=== PATIENT | male | born 2000 | race Hispanic/Latino ===

== ENCOUNTER 2024-08-30 21:51 | Emergency (ER) | payer SELFPAY ==
[~2024-08-30] VITALS: Ht 172.7 cm; Wt 121.1 kg
--- NOTE | 2024-08-30 22:06 | ERN ---
ED Note History of Present Illness Stated Complaint: C/O ABD PAIN WITH N X V ONSET THIS EVENING Chief Complaint: Abdominal Pain Time Seen by MD: 22:00 Dictation: PATIENT IS A 24-YEAR-OLD MALE COMING IN TODAY WITH COMPLAINTS OF EPIGASTRIC PAIN WITH NAUSEA VOMITING ONSET 2 HOURS PRIOR TO ARRIVAL. NO FEVER NO CHILLS NO CHEST PAIN NO BACK PAIN NO SOB. NO PRIMARY CARE DOCTOR AND HE HAS TAKEN NOTHING TODAY PRIOR TO ARRIVAL Allergies: Coded Allergies: No Known Allergies (Unverified Allergy, Unknown, 08/30/24) Past Medical History Past Medical History: No Pertinent History Surgical History: None PSYCH History: no pertinent psych hx RN Note Reviewed/Agreed w/PFSH: Yes Review of System Dictation CONSTITUTIONAL: NEGATIVE EXCEPT FOR HPI HEAD/FACE: NEGATIVE EXCEPT FOR HPI EENT: NEGATIVE EXCEPT FOR HPI RESPIRATORY: NEGATIVE EXCEPT FOR HPI GASTROINTESTINAL/ABDOMINAL: NEGATIVE EXCEPT FOR HPI EPIGASTRIC PAIN WITH NAUSEA AND VOMITING GENITOURINARY: NEGATIVE EXCEPT FOR HPI MUSCULOSKELETAL: NEGATIVE EXCEPT FOR HPI INTEGUMENTARY: NEGATIVE EXCEPT FOR HPI NEUROLOGICAL/PSYCH: NEGATIVE EXCEPT FOR HPI HEMATOLOGIC/LYMPHATIC: NEGATIVE EXCEPT FOR HPI ALL SYSTEMS NEGATIVE, EXCEPT NOTED ABOVE. 13 POINT REVIEW OF SYSTEMS ASSESSED AND ALL NEGATIVE EXCEPT FOR ABOVE. Initial Vital Sign VS Vital Signs Date Time Temp Pulse Resp B/P (MAP) Pulse Ox O2 Delivery O2 Flow Rate FiO2 08/30/24 21:55 97.3 70 18 134/92 100 Room Air 08/31/24 00:20 0 21 Physical Exam Dictation VITAL SIGNS REVIEWED GENERAL APPEARANCE: ALERT, ORIENTED X 3, MILD ACUTE DISTRESS, WELL DEVELOPED, NOURISHED. OBESE HEAD AND FACE: NON-TRAUMATIC. EYES: PERRL, PINK CONJUNCTIVAS, EYELID NO TRAUMA, ANTERIOR CHAMBER WITH ARCUS SENILIS. EARS: PINNAS INTACT AND NO SIGNS OF TRAUMA OR ERYTHEMA EAR CANALS CLEAR AND NO DISCHARGE TM NO ERYTHEMA NOSE: NO DISCHARGE, NO BLEEDING. OROPHARYNX: MOUTH NORMAL, TONGUE PINK, PHARYNX CLEAR,NO ERYTHEMA, TONSILS NO EXUDATES, NO ABSCESSES NOTED, MUCOUS MEMBRANE MOIST NECK: SUPPLE, NON-TENDER, NO THYROMEGALY, NO MASSES, NO JVD, NO BRUITS BREAST:DEFERRED CHEST:NO TENDERNESS, NO CREPITUS, NO PARADOXICAL MOVEMENT, NO RETRACTIONS LUNGS:CLEAR, WELL-VENTILATED, SYMMETRIC, NO RALES, NO WHEEZING, NO RHONCHI, NO STRIDOR, GOOD BREATH SOUNDS BILATERALLY HEART: REGULAR RATE, REGULAR RHYTHM, NO MURMUR, NO GALLOPS VASCULAR: NO PERIPHERAL EDEMA, ABDOMEN: SOFT, POSITIVE BOWEL SOUNDS, NONDISTENDED, NO GUARDING, MODERATE EPIGASTRIC TENDERNESS WITH PALPATION, NO REBOUND, NO MASSES NO HEPATOMEGALY, NO SPLENOMEGALY, NO SHEPHERD'S SIGN, NO HERNIAS. RECTAL: DEFERRED GENITAL: DEFERRED NEUROLOGICAL: NORMAL SPEECH, MOTOR FUNCTION INTACT, SENSORY FUNCTION INTACT MUSCULOSKELETAL: NECK NONTENDER, FULL RANGE OF MOTION, BACK NONTENDER, FULL RANGE OF MOTION, EXTREMITIES: NONTENDER, FULL RANGE OF MOTION SKIN: COLOR PINK, DRY, NO TURGOR, NO RASH, NO LACERATIONS, NO ABRASIONS, NO CONTUSIONS. LYMPHATIC: DEFERRED, NEED Results (Laboratory/Radiology) Laboratory/Radiology Laboratory Tests Test 08/30/24 22:31 08/31/24 01:25 White Blood Count 15.2 K/uL (4.8-10.8) H Red Blood Count 4.76 MIL/uL (4.50-6.20) Hemoglobin 15.3 g/dL (14.0-18.0) Hematocrit 44.4 % (42-54) Mean Corpuscular Volume 93.3 fL (79-99) Mean Corpuscular Hemoglobin 32.1 pg (27.0-33.0) Mean Corpuscular Hemoglobin Concent 34.5 g/dL (32.0-36.0) Red Cell Distribution Width 12.1 % (11.0-15.5) Platelet Count 278 K/uL (130-400) Mean Platelet Volume 10.4 fL (7.5-10.5) Immature Granulocyte % (Auto) 0.4 % (0-1) Neutrophils (%) (Auto) 68.9 % (40.0-77.0) Lymphocytes (%) (Auto) 23.9 % (21.0-51.0) Monocytes (%) (Auto) 5.5 % (3.0-13.0) Eosinophils (%) (Auto) 0.8 % (0.0-8.0) Basophils (%) (Auto) 0.5 % (0.0-5.0) Neutrophils # (Auto) 10.5 K/uL (1.8-7.7) H Lymphocytes # (Auto) 3.6 K/uL (1.0-4.8) Monocytes # (Auto) 0.8 K/uL (0.1-1.0) Eosinophils # (Auto) 0.12 K/uL (0.00-0.70) Basophils # (Auto) 0.07 K/uL (0.00-0.20) Absolute Immature Granulocyte (auto 0.06 K/uL (0-1) Nucleated Red Blood Cells 0.0 % (0.0-0.19) Sodium Level 144 mmol/L (136-145) Potassium Level 4.1 mmol/L (3.5-5.1) Chloride Level 104 mmol/L (101-111) Carbon Dioxide Level 32 mmol/L (21-32) Blood Urea Nitrogen 12 mg/dL (7-18) Creatinine 1.0 mg/dL (0.5-1.3) Glomerular Filtration Rate Calc 108 mL/min (>90) Random Glucose 107 mg/dL (70-105) H Total Calcium 9.3 mg/dL (8.5-10.1) Lipase 18 U/L (16-77) Urine Color LIGHT-YELLOW (YELLOW) Urine Appearance CLEAR (CLEAR) Urine pH 7.0 (5.0-8.0) Urine Specific [place] 1.020 (1.001-1.031) Urine Protein NEGATIVE mg/dL (NEGATIVE) Urine Glucose (UA) NEGATIVE mg/dL (NEGATIVE) Urine Ketones NEGATIVE mg/dL (NEGATIVE) Urine Occult Blood NEGATIVE (NEGATIVE) Urine Nitrate NEGATIVE (NEGATIVE) Urine Bilirubin NEGATIVE mg/dL (NEGATIVE) Urine Urobilinogen 0.2 mg/dL (0.2-1.0) Urine Leukocyte Esterase NEGATIVE Irais/uL Labs Reviewed?: Yes ED Course ED Course Orders Procedure Category Date Status Time Vital Signs Per CPOE 08/30/24 Transmitted Routine 22:00 Saline Lock Iv CPOE 08/30/24 Transmitted 22:00 Cbc With Differential LAB 08/30/24 Complete 22:00 Lipase LAB 08/30/24 Complete 22:00 Urinalysis Profile LAB 08/30/24 Complete 22:00 Basic Metabolic Panel LAB 08/30/24 Complete 22:00 0.9%Nacl 1000ml (Ns PHA 08/30/24 Complete 1000ml) 22:30 Morphine 2mg Syg PHA 08/30/24 Complete (Morphine 2mg Syg) 22:30 Ondansetron 4mg Inj PHA 08/30/24 Complete (Zofran 4mg Inj) 22:30 Famotidine 20mg Vial PHA 08/30/24 Complete (Pepcid 20mg Vial) 22:30 Lidocaine Hcl 2% PHA 08/31/24 Complete Viscous (Lidocaine Hcl 01:00 Mag/Alum/Simeth 30ml PHA 08/31/24 Complete (Maalox Plus 30ml) 01:00 Dicyclomine Hcl PHA 08/31/24 Complete (Bentyl 10mg/5ml 01:00 Morphine 2mg Syg PHA 08/31/24 Complete (Morphine 2mg Syg) 01:30 Current Medications Medications (Trade) Dose Ordered Sig/Grace Route PRN Reason Start Time Stop Time Status Last Admin Dose Admin Al Hydroxide/Mg Hydroxide (MAALox PLUS 30ML) 30 ml ONCE ONCE PO 08/31/24 01:00 08/31/24 01:01 [place] 08/31/24 00:49 Dicyclomine HCl (Bentyl 10mg/5ml Syrup) 10 mg ONCE ONCE PO 08/31/24 01:00 08/31/24 01:01 [place] 08/31/24 00:49 Famotidine (Pepcid 20mg Vial) 20 mg ONCE ONCE IV 08/30/24 22:30 08/30/24 22:31 DC 08/30/24 23:32 Lidocaine HCl (Lidocaine HCl 2% Viscous) 10 ml ONCE ONCE PO 08/31/24 01:00 08/31/24 01:01 [place] 08/31/24 00:49 Morphine Sulfate (morPHINE 2MG SYG) 2 mg ONCE ONCE IVP 08/30/24 22:30 08/30/24 22:31 DC 08/30/24 23:32 Morphine Sulfate (morPHINE 2MG SYG) 2 mg ONCE ONCE IVP 08/31/24 01:30 08/31/24 01:31 [place] 08/31/24 01:24 Ondansetron HCl (zoFRAN 4MG INJ) 4 mg ONCE ONCE IVP 08/30/24 22:30 08/30/24 22:31 DC 08/30/24 23:32 Sodium Chloride 1,000 ml @ 0 mls/hr ONCE ONCE IV 08/30/24 22:30 08/30/24 22:31 DC 08/30/24 23:33 Vital Signs Date Time Temp Pulse Resp B/P (MAP) Pulse Ox O2 Delivery O2 Flow Rate FiO2 08/31/24 00:20 98.8 66 20 128/88 100 Room Air* 0 21 08/30/24 21:55 97.3 70 18 134/92 100 Room Air 0135, PATIENT STATES PAIN MARKEDLY REDUCED AFTER TREATMENT. STATES HE WAS DIAGNOSED WITH GASTRIC ULCER IN [place] BOTTOM HOWEVER NEVER FOLLOWED UP FOR TREATMENT NOR DID HE CONTINUE THE TREATMENT THAT WAS RECOMMENDED FOR HIM. I STRONGLY ADVISED HIM TO STOP EATING SPICY FOODS ALCOHOL ACIDIC FOODS ETC. FOLLOW A BLAND DIET AND I WOULD PUT HIM ON CARAFATE AND OMEPRAZOLE GIVE HIM THE NAME OF Medical Decision Making MDM MDM: DIFFERENTIAL DIAGNOSIS: GASTRITIS VERSUS GASTROENTERITIS VERSUS PANCREATIC TITER PANCREATITIS VERSUS RATIONALE: TESTS CONSIDERED AND ORDERED SECONDARY TO SHARED DECISION MAKING INCLUDE: LABS PREVIOUS OUTSIDE RECORDS REVIEWED: OLD ER VISITS. REVIEWED RISK OF COMPLICATION AND/OR MORBIDITY OR MORTALITY OF PATIENT MANAGEMENT: NONE MEDICATIONS-PER MEDICATION RECONCILIATION NEED FOR HOSPITALIZATION: PATIENT DOES NOT MEET CRITERIA FOR HOSPITALIZATION. NO NEED FOR EMERGENCY MAJOR/MINOR SURGERY: NO THERE ARE NO SOCIAL CONCERNS WITH THIS PATIENT. PRESCRIPTION DRUG MANAGEMENT CARAFATE/OMEPRAZOLE PRESCRIPTIONS WILL INCLUDE SYMPTOMATIC CARE PATIENT'S PRIOR EXTERNAL MEDICAL RECORDS FROM OTHER ER VISITS WERE REVIEWED BY ME INDICATED. PRIOR TESTING AND RESULTS FROM PREVIOUS VISITS WERE REVIEWED. PRIOR TESTS WERE TAKEN INTO ACCOUNT WITH MEDICAL DECISION MAKING AND RESOURCE UTILIZATION, INDEPENDENT HISTORIAN/HISTORIANS WERE USED TO OBTAIN COMPLETE MEDICAL HISTORY. I INDEPENDENTLY INTERPRETED THE TEST THAT WERE PERFORMED, RESULTS WERE REVIEWED BY ME AND CONSIDERED FINDINGS ON RADIOLOGY IF ORDERED. MEDICAL MANAGEMENT AND EXAMINATION INTERPRETATION DISCUSSIONS WERE HAD BY ME WITH OTHER QUALIFIED HEALTHCARE PROFESSIONALS INDICATED FOR THE PATIENT'S CARE. DX & DISP Disposition: Discharge Departure Impression: Primary Impression: Acute gastritis Additional Impressions: Vomiting, History of gastric ulcer Condition: Stable Scripts Omeprazole (Omeprazole) 40 Mg Capsule.dr 1 CAP PO DAILY for 30 Days, #30 CAP 0 Refills Prov: RESHMA BROOKS NP 08/31/24 Sucralfate (Carafate) 1 Gram Tablet 1 GM PO ACHS for 10 Days, #40 TAB Prov: RESHMA BROOKS [employer] ACCOUNT EXECUTIVE 08/31/24 Additional Instructions: FOLLOW-UP WITH PRIMARY CARE PROVIDER IN 1 TO 2 DAYS. TAKE MEDICATIONS DIRECTED HERE IN THE EMERGENCY ROOM. OKAY TO CONTINUE HOME MEDICATIONS UNLESS OTHERWISE DISCUSSED DURING YOUR VISIT IN THE EMERGENCY ROOM TODAY. RETURN TO YOUR NEAREST EMERGENCY ROOM IF SYMPTOMS WORSEN OR IF THERE IS NO IMPROVEMENT. CALL 911 IF YOU NEED IMMEDIATE ASSISTANCE. TAKE TYLENOL OR MOTRIN OVER -THE-COUNTER NEEDED AND IF NO CONTRAINDICATIONS ARE PRESENT. INCREASE ORAL HYDRATION. A WOUND CULTURE OR URINE CULTURE WAS ORDERED HERE IN THE EMERGENCY ROOM DEPARTMENT PLEASE FOLLOW-UP WITH PRIMARY CARE PROVIDER AND ADVISE THEM TO GET REPEAT PORTS FROM OUR FACILITY. IF YOU HAD ANY ALVIN WRAP/SPLINTS THAT WERE APPLIED HERE, PLEASE DO NOT REMOVE THEM UNTIL YOU SEE YOUR PRIMARY CARE OR SPECIALTY. FOLLOW A BLAND DIET WITH WATER FOR FLUIDS ONLY. NO ALCOHOL, NO TOBACCO, NO SODA POP, NO ICE TEA, NO CITRUS FRUIT JUICE UNTIL CLEARED BY DENIAL RESOLUTION SPECIALIST CALL HIM FOR AN APPOINTMENT TOMORROW. Referrals: SELF,REFERRAL (PCP) ALEXANDER JOHN MD Time of Disposition: 01:40 I have reviewed the case, and I agree with, Diagnosis and Plan RESHMA BROOKS NP Aug 30, 2024 22:06
[2024-08-30 22:44] LABS: BASOPHILS # (AUTO) 0.07 K/uL (0.00-0.20); BASOPHILS % (AUTO) 0.5 % (0.0-5.0); EOSINOPHILS # (AUTO) 0.12 K/uL (0.00-0.70); EOSINOPHILS % (AUTO) 0.8 % (0.0-8.0); HEMATOCRIT 44.4 % (42-54); IMMATURE GRANULOCYTE ABSOLUTE 0.06 K/uL (0-1); LYMPHOCYTES # (AUTO) 3.6 K/uL (1.0-4.8); LYMPHOCYTES % (AUTO) 23.9 % (21.0-51.0); MEAN CORPUSCULAR HEMOGLOBIN 32.1 pg (27.0-33.0); MEAN CORPUSCULAR HGB CONC 34.5 g/dL (32.0-36.0); MEAN CORPUSCULAR VOLUME 93.3 fL (79-99); MONOCYTES # (AUTO) 0.8 K/uL (0.1-1.0); MONOCYTES % (AUTO) 5.5 % (3.0-13.0); NEUTROPHILS # (AUTO) 10.5 K/uL (1.8-7.7); NEUTROPHILS % (AUTO) 68.9 % (40.0-77.0); PLATELET COUNT (AUTO) 278 K/uL (130-400); RED BLOOD CELL COUNT(AUTO) 4.76 MIL/uL (4.50-6.20); RED CELL DISTRIBUTION WIDTH 12.1 % (11.0-15.5); WHITE BLOOD COUNT (AUTO) 15.2 K/uL (4.8-10.8)
[2024-08-30 22:58] LABS: POTASSIUM 4.1 mmol/L (3.5-5.1)
[2024-08-30] MEDS: morPHINE 2 MG SYG IVP ONE (23:32)
[2024-08-30] MEDS: ondanSETRON 4MG INJ IVP ONE (23:32)
[2024-08-30] MEDS: FAMOTIDINE 20MG VIAL IV ONE (23:32)
[2024-08-30] MEDS: 0.9%NACL 1000ML 1,000 ML IV ONE (23:33)
[2024-08-31] MEDS: DICYCLOMINE HCL 10 MG/5 ML ML PO ONE (00:49)
[2024-08-31] MEDS: LIDOCAINE HCL 2% VISCOUS 15 ML UDCUP PO ONE (00:49)
[2024-08-31] MEDS: MAG/ALUM/SIMETH 30 ML UDCUP PO ONE (00:49)
[2024-08-31] MEDS: morPHINE 2 MG SYG IVP ONE (01:24)
[2024-08-31 01:31] LABS: ADD UA MICROSCOPIC NO; APPEARANCE,URINE CLEAR (CLEAR); BILIRUBIN,URINE NEGATIVE (NEGATIVE); COLOR,URINE LIGHT-YELLOW (YELLOW); GLUCOSE, URINE (UA) NEGATIVE (NEGATIVE); KETONES,URINE NEGATIVE (NEGATIVE); LEUKOCYTE ESTERASE ,URINE NEGATIVE Leu/uL (NEGATIVE); NITRATE,URINE NEGATIVE (NEGATIVE); OCCULT BLOOD,URINE NEGATIVE (NEGATIVE); PROTEIN,URINE NEGATIVE (NEGATIVE); UROBILINOGEN,URINE 0.2 mg/dL (0.2-1.0)
[2024-08-31 01:41] VITALS: BP 124/84; PULSE 70; RESP 20; TEMP 98.7; O2SAT 100
[2024-08-31] MEDS: SUCRALFATE 1 GM TABLET PO ONE (01:44)
[2024-08-31] MEDS ORDERED: SUCR1TAB28 PO (01:45)
[2024-08-31] MEDS ORDERED: OMEP40CA21 PO (01:45)
== END 2024-08-31 01:47 | disposition home or self-care (01) ==
LOC: EDH 21:51
DX: K29.00 Acute gastritis without bleeding (principal); R11.2 Nausea with vomiting, unspecified; Z87.11 Personal history of peptic ulcer disease
CPT/HCPCS: 99284; 96374; 96375; 80048; 83690; 85025; 81003; 36415; 96376; J3490; J2270 ×2; J7030; J2405